=== PATIENT | female | born 1945 | race Caucasian/White ===

== ENCOUNTER → 2024-09-27 | Outpatient (CLI) | payer MEDICARE, BC, SELFPAY ==
--- NOTE | 2024-09-27 15:16 | XR_ITS ---
Examination: Knee bilateral, 6 views Technique: Knee AP, lateral, oblique each knee total 6 views Date and time of exam: September 27, 2024 6 1631 hours INDICATIONS: Bilateral knee pain beginning 10 years ago. 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
--- NOTE | 2024-09-27 15:16 | XR_ITS ---
Examination: AP left knee single view AP right knee single view TECHNIQUE: Standing AP left knee single view, standing AP right knee single view, total 2 views Exam date and time: September 27, 2024 at 1431 hours INDICATIONS: Bilateral knee pain 10 years FINDINGS: Advanced narrowing [id number] medial joint space right knee left knee Prominent osteopenia No fracture IMPRESSION: Advanced narrowing [id number] medial joint space right and left knee
== END | disposition home or self-care (01) ==
LOC: CDIM 14:47
PROVIDERS: PCP Family Medicine; Referring Provider Orthopaedic Surgery; Visit Provider Orthopaedic Surgery
DX: M17.0 Bilateral primary osteoarthritis of knee (principal); M25.862 Other specified joint disorders, left knee; M25.861 Other specified joint disorders, right knee
CPT/HCPCS: 73562; 73564; 73565

== ENCOUNTER → 2024-10-18 | Outpatient (CLI) | payer MEDICARE, BC, SELFPAY ==
[2024-10-18 12:51] LABS: Collection Type, Urine Clean Catch
[2024-10-18 13:25] LABS: Basophils # (Auto) 0.1 Thou/mm3 (0.0-0.2); Basophils % (Auto) 1 % (0-2.5); Eosinophils # (Auto) 1.1 Thou/mm3 (0.0-0.5); Eosinophils % (Auto) 15 % (0-10); Hematocrit 37.3 % (36.0-46.0); Immature Granulocytes % (Auto) 0 % (0-0); Immature Granulocytes Auto 0.02 Thou/mm3 (0.00-0.00); Lymphocytes # (Auto) 1.8 Thou/mm3 (1.0-4.8); Lymphocytes % (Auto) 25 % (10-50); Mean Corpuscular HGB Conc 32.2 g/dl (31.0-37.0); Mean Corpuscular Hemoglobin 32.8 pg (25.0-35.0); Mean Corpuscular Volume 102 fL (80-100); Monocytes # (Auto) 0.6 Thou/mm3 (0.0-0.8); Monocytes % (Auto) 8 % (0-12); Neutrophils # (Auto) 3.5 Thou/mm3 (1.8-7.7); Neutrophils % (Auto) 50 % (37-80); Nucleated Red Blood Cell % 0 /100 WBC (0); Platelet Count 164 Thou/mm3 (140-440); RDW Standard Deviation 50.2 fL (36.4-46.3); Red Blood Count 3.66 Miln/mm3 (4.00-5.20); White Blood Count 7.1 Thou/mm3 (3.6-11.0)
[2024-10-18 13:39] LABS: Glucose Estimated Average 111 mg/dL (80-131); Hemoglobin A1C 5.5 % Hgb (4.8-6.0)
[2024-10-18 13:55] LABS: Bacteria,Urine Rare; Bilirubin,Urine Negative (Negative); Blood,Urine Negative (Negative); Clarity,Urine Clear (Clear/Hazy); Color,Urine Lt-Yellow (Lt Yel-Yel); Glucose, Urine Negative (Negative); Ketones,Urine Negative (Negative); Leukocyte Esterase,Urine Negative (Negative); Nitrite,Urine Negative (Negative); PH,Urine 7.5 (5.0-7.0); Protein,Urine Trace (Neg - Trace); RBC,Urine 3 /hpf (0-3); Squamous Epithelial Cell,Urine 4 /hpf (0-5); Urobilinogen,Urine Negative mg/dL (0.0-1.0); WBC,Urine 5 /hpf (0-5)
[2024-10-18 13:58] LABS: Alanine Aminotransferase 13 U/L (10-49); Albumin, Serum 4.2 gm/dL (3.4-4.8); Albumin/Globulin Ratio 1.8 (1.2-2.2); Alkaline Phosphatase 57 U/L (46-116); Anion Gap 6 (7-16); BUN/Creatinine Ratio 18 Ratio (12-20); Bilirubin,Total 0.4 mg/dL (0.3-1.2); Blood Urea Nitrogen 29 mg/dL (9-23); Calcium 10.2 mg/dL (8.3-10.6); Calcium (Corrected) 10.2 mg/dL (8.5-10.1); Carbon Dioxide 30.3 mMol/L (20.0-31.0); Cardiac Risk Estimate 2.3 RATIO (3.7-5.6); Chloride 106 mMol/L (98-107); Cholesterol 144 mg/dL (132-200); Creatinine (Component) 1.6 mg/dL (0.6-1.3); Globulin 2.4 gm/dL (2.3-3.5); Glucose 111 mg/dL (74-106); HDL Cholesterol 62 mg/dL (40-60); LDL Cholesterol,Calculated 58 mg/dL (0-130); Osmolality,Calculated 289 (275-295); Phosphorous 3.2 mg/dL (2.4-5.1); Sodium 142 mMol/L (136-145); Thyroid Stimulating Hormone 1.55 uIU/mL (0.55-4.78); Total Protein 6.6 gm/dL (5.7-8.2); Triglycerides 122 mg/dL (30-150); eGFR 33 See Note
[2024-10-18 14:02] LABS: CA 15-3 7.7 U/mL (<32.4); Carcinoembryonic Antigen 7.2 ng/mL (0.0-5.0)
[2024-10-18 14:03] LABS: Aspartate Amino Transferase < 8 U/L (0-34)
== END | disposition home or self-care (01) ==
LOC: COPL 11:59
PROVIDERS: PCP Internal Medicine; Referring Provider Internal Medicine; Visit Provider Internal Medicine
DX: Z01.810 Encounter for preprocedural cardiovascular examination (principal); I12.9 Hypertensive chronic kidney disease with stage 1 through stage 4 chronic kidney disease, or unspecified chronic kidney disease; N18.30 Chronic kidney disease, stage 3 unspecified; E78.5 Hyperlipidemia, unspecified; Z90.13 Acquired absence of bilateral breasts and nipples; Z85.3 Personal history of malignant neoplasm of breast
CPT/HCPCS: 36415; 80053; 80061; 81001; 82378; 83036; 84100; 84443; 85025; 86300

== ENCOUNTER → 2024-10-26 | Outpatient (CLI) | payer MEDICARE, BC, SELFPAY | END | disposition home or self-care (01) | LOC: SLDO 15:28 | PROVIDERS: PCP Nurse Practitioner Family; Referring Provider Nurse Practitioner Family; Visit Provider Nurse Practitioner Family | DX: L13.9 Bullous disorder, unspecified (principal) | CPT/HCPCS: 87070; 87077; 87186; 87205 ==

== ENCOUNTER 2024-10-27 13:22 | Outpatient (RCR) | payer MEDICARE, BC, SELFPAY | END 2024-11-09 23:59 | disposition home or self-care (01) | LOC: SCTC 13:22 | PROVIDERS: PCP Nurse Practitioner Family; Referring Provider Internal Medicine; Visit Provider Nurse Practitioner Family | DX: Z08 Encounter for follow-up examination after completed treatment for malignant neoplasm (principal); Z85.3 Personal history of malignant neoplasm of breast; Z90.13 Acquired absence of bilateral breasts and nipples | CPT/HCPCS: 99212; G0463 ==

== ENCOUNTER → 2024-10-28 | Outpatient (CLI) | payer MEDICARE, BC, SELFPAY | END | disposition home or self-care (01) | PROVIDERS: PCP Nurse Practitioner Family; Referring Provider Nurse Practitioner Family; Visit Provider Student in an Organized Health Care Education/Training Program | DX: L97.112 Non-pressure chronic ulcer of right thigh with fat layer exposed (principal); N18.9 Chronic kidney disease, unspecified; E66.9 Obesity, unspecified; I50.9 Heart failure, unspecified; N18.6 End stage renal disease | CPT/HCPCS: 99213; A9270; G0463 ==

== ENCOUNTER → 2024-11-04 | Outpatient (CLI) | payer MEDICARE, BC, SELFPAY | END | disposition home or self-care (01) | LOC: SWHD 15:03 | PROVIDERS: PCP Family Medicine; Referring Provider Family Medicine; Visit Provider Student in an Organized Health Care Education/Training Program | DX: L02.415 Cutaneous abscess of right lower limb (principal); L97.112 Non-pressure chronic ulcer of right thigh with fat layer exposed; N18.9 Chronic kidney disease, unspecified; I50.9 Heart failure, unspecified; N18.6 End stage renal disease | CPT/HCPCS: 17250; A9270 ==

== ENCOUNTER → 2024-11-12 | Outpatient (CLI) | payer MEDICARE, BC, SELFPAY | END | disposition home or self-care (01) | LOC: SWHD 15:04 | PROVIDERS: PCP Family Medicine; Referring Provider Family Medicine; Visit Provider Student in an Organized Health Care Education/Training Program | DX: L02.415 Cutaneous abscess of right lower limb (principal); L97.112 Non-pressure chronic ulcer of right thigh with fat layer exposed; N18.9 Chronic kidney disease, unspecified; E66.9 Obesity, unspecified; I50.9 Heart failure, unspecified; N18.6 End stage renal disease | CPT/HCPCS: 99213; G0463 ==

== ENCOUNTER 2024-11-13 18:08 | Emergency (ER) | payer MEDICARE, BC, SELFPAY ==
[2024-11-13] VITALS (9 sets, daily range): BP systolic 141–159; BP diastolic 66–96; PULSE 85–106; RESP 16–21; TEMP 36.4–37.5; O2SAT 91–98; BMI 37.1
[2024-11-13 19:30] LABS: Basophils % (Auto) 0 % (0-2.5); Eosinophils # (Auto) 0.2 Thou/mm3 (0.0-0.5); Eosinophils % (Auto) 3 % (0-10); Hematocrit 39.8 % (36.0-46.0); Hemoglobin 13.3 g/dL (12.0-16.0); Immature Granulocytes % (Auto) 0 % (0-0); Immature Granulocytes Auto 0.03 Thou/mm3 (0.00-0.00); Lymphocytes # (Auto) 0.5 Thou/mm3 (1.0-4.8); Lymphocytes % (Auto) 5 % (10-50); Mean Corpuscular HGB Conc 33.4 g/dl (31.0-37.0); Mean Corpuscular Hemoglobin 33.3 pg (25.0-35.0); Mean Corpuscular Volume 100 fL (80-100); Monocytes # (Auto) 0.6 Thou/mm3 (0.0-0.8); Monocytes % (Auto) 6 % (0-12); Neutrophils % (Auto) 86 % (37-80); Nucleated Red Blood Cell % 0 /100 WBC (0); Platelet Count 130 Thou/mm3 (140-440); RDW Standard Deviation 48.7 fL (36.4-46.3); White Blood Count 9.3 Thou/mm3 (3.6-11.0)
[2024-11-13] MEDS: ACETAMINOPHEN 325 MG TABLET 650 MG PO (19:41)
[2024-11-13] MEDS: SODIUM CHLORIDE 0.9% 500 ML 500 ML 999 ML IV (19:43)
[2024-11-13 20:04] LABS: Alanine Aminotransferase 8 U/L (10-49); Albumin, Serum 4.1 gm/dL (3.4-4.8); Albumin/Globulin Ratio 1.6 (1.2-2.2); Alkaline Phosphatase 53 U/L (46-116); Anion Gap 9 (7-16); Aspartate Amino Transferase 18 U/L (0-34); BUN/Creatinine Ratio 14 Ratio (12-20); Bilirubin,Total 0.5 mg/dL (0.3-1.2); Blood Urea Nitrogen 22 mg/dL (9-23); Calcium 9.6 mg/dL (8.3-10.6); Calcium (Corrected) 9.6 mg/dL (8.5-10.1); Carbon Dioxide 22.8 mMol/L (20.0-31.0); Chloride 109 mMol/L (98-107); Creatinine (Component) 1.6 mg/dL (0.6-1.3); Estimated Creatinine Clearance 35.4 mL/min (>60); Globulin 2.5 gm/dL (2.3-3.5); Glucose 122 mg/dL (74-106); Osmolality,Calculated 285 (275-295); Potassium 4.4 mMol/L (3.4-5.1); Sodium 141 mMol/L (136-145); Total Protein 6.6 gm/dL (5.7-8.2); Troponin I < 0.020 ng/mL (0.0-0.045); eGFR 33 See Note
--- NOTE | 2024-11-13 20:31 | PD.EDNV ---
Nausea/Vomit./Diarrhea-RME/HPI General Chief complaint: Nausea/Vomiting/Diarrhea Stated complaint: HEADACHE Time Seen by Provider: 11/13/24 18:32 Source: patient and EMS Arrival date/time: 11/13/24 18:08 Mode of arrival: EMS Limitations: no limitations RME / HPI RME / HPI Narrative: --- DR. BENAVIDES MAIN ED EVALUATION: 78-year-old female with a history of depression, gout, high cholesterol, CHF on Lasix, constipation, chronic pain medicine coming in with diarrhea x 1 day. Patient complaining of dizziness. No syncope. Patient states that she had multiple episodes of nonbloody and none smelly diarrhea today, 1 episode of nausea, no chest pain or shortness of breath. The patient is complaining of lightheadedness without vertigo. No weakness or numbness. Patient takes Zoloft, [place], atorvastatin, Lasix, senna, aspirin, Tylenol with her arthritis. Related Data Home Medications ?Medication ?Instructions ?Recorded ?Confirmed hydrocodone 5 mg-acetaminophen 325 1 tab PO BID PRN Pain 09/21/19 05/29/21 mg tablet acetaminophen 650 mg 650 mg PO QAM 05/29/21 05/29/21 tablet,extended release (Tylenol Arthritis Pain) allopurinol 100 mg tablet 100 mg PO QDAY 05/29/21 05/29/21 atorvastatin 20 mg tablet 20 mg PO QPM 05/29/21 05/29/21 cholecalciferol (vitamin D3) 125 125 mcg PO QPM 05/29/21 05/29/21 mcg (5,000 unit) tablet (Vitamin D3) clonazepam 1 mg tablet 1 mg PO QPM 05/29/21 05/29/21 docusate sodium 100 mg tablet 200 mg PO QDAY 05/29/21 05/29/21 (Stool Softener) mirabegron 25 mg tablet,extended 25 mg PO QDAY 05/29/21 05/29/21 release 24 hr (Myrbetriq) nabumetone 500 mg tablet 500 mg PO QAM 05/29/21 05/29/21 pregabalin 75 mg capsule (Lyrica) 75 mg PO BID 05/29/21 05/29/21 sennosides 8.6 mg tablet (senna) 8.6 mg PO QDAY 05/29/21 05/29/21 sertraline 100 mg tablet 150 mg PO QDAY 05/29/21 05/29/21 Allergies Allergy/AdvReac Type Severity Reaction Status Date / Time penicillin G Allergy Unknown ITCH, Verified 11/13/24 18:23 RASH, THROAT SWELLING, STOMACH PAIN Review of Systems Review of Systems Systems Reviewed: All systems reviewed, normal except as documented Past Medical History Past Medical History NEUROLOGIC: Negative Seizures CARDIAC: Negative Cardiac Disorders or Congestive Heart Failure RESPIRATORY: Negative Chronic Obstructive Pulmonary Disease (COPD) or Asthma GASTROINTESTINAL: Positive Gall Bladder Disease and Obesity GENITOURINARY: Positive Renal Disease REPRODUCTIVE: Positive Breast Cancer MUSCULOSKELETAL: Positive Musculoskeletal Disorders, Arthritis, Osteoporosis and Gout ENDOCRINE: Negative Diabetes Mellitus Type 1 or Diabetes Mellitus Type 2 HEMATOLOGIC: Positive Anemia; Negative Blood Disorders or Sickle Cell Disease PSYCHO/SOCIAL: Positive Depression OTHER HISTORY: Positive Blood Transfusions, Cancer and Breast Cancer; Negative Blood Transfusion Reaction, Anesthesia Reactions or Cervical Cancer Surgical History SURGICAL: Positive Mastectomy and Hysterectomy Social History SMOKING STATUS: Never smoker SUBSTANCE USE: does not use ED Exam Narrative Physical exam: GEN. APPEARANCE: The patient is alert awake oriented X-3 in no distress, lying down comfortably, Patient has good eye contact. Patient is cooperative. VITALS: All vitals were reviewed and the pulse ox is [96]% on room air which is normal according to my interpretation. HEENT: Normocephalic, atraumatic. Dry mucous membranes NECK: Supple, nontender, no thyromegaly, no meningismus, no JVD, no step offs CHEST: Symmetrical, atraumatic, and with equal expansion , Nontender on palpation no deformity and no crepitus. CARDIOVASCULAR: Heart regular rhythm no murmur or gallop rub or extra beats. LUNGS: There is decreased breath sounds with R> L No laboring tachypnea or wheezing. No intercostal subcostal retraction. No rales and no rhonchi. ABDOMEN: Soft, flat, nontender to palpation, no guarding or rebound tenderness. There are no abnormal masses palpated. EXTREMITIES: Nontender. No edema. No cyanosis. Patient is able to move all 4 extremities well, with full ROM. There is pedal edema at bilateral ankles. SKIN: Warm and dry, no jaundice or rashes noted. No pallor. MUSCULOSKELETAL: No lumbar or midline bony tenderness. There is no CVA tenderness. NEURO: Patient is QUESADA x 4, Cranial nerves II through XII grossly intact. There is no focal neurologic deficits noted. GCS is 15, General Limitations: Present no limitations Course Course Course Narrative: Creatinine is 1.6. This is at the patient's baseline. Quality Measures none Orders Category Date Time Status IV [Insert IV] NOW Care 11/13/24 18:40 Active In and Out Catheter X1 Care 11/13/24 18:[address] head/brain wo con Stat Exams 11/13/24 23:07 Completed CBC Stat Lab 11/13/24 19:08 Completed CMP [Comprehensive Metabolic Panel] Stat Lab 11/13/24 19:08 Completed Troponin I Stat Lab 11/13/24 19:08 Completed Urinalysis Stat Lab 11/14/24 01:50 Completed Acetaminophen Tab [Tylenol Tab] Med 11/13/24 18:42 Discontinued 650 mg PO X1 ONE Sodium Chloride 0.9% 500 ml [Ns] 500 ml Med 11/13/24 18:41 Discontinued IV 999 mls/hr Vital Signs Vital signs: Vital Signs Temperature 99.5 F 11/13/24 18:18 Pulse Rate 106 H 11/13/24 18:18 Respiratory Rate 21 H 11/13/24 18:18 Blood Pressure 159/96 H 11/13/24 18:18 Pulse Oximetry (%) 92 L 11/13/24 18:18 Oxygen Delivery Method Room Air 11/13/24 18:18 Nausea/Vomiting/Diarrhea MDM Narrative MDM Narrative:: Scribe Attestation: IDrew, am scribing for and in the presence of Dr. Vasquez. Provider Notation: Although this document has been carefully reviewed, there may still be some phonetic and other typographical errors. These errors are purely grammatical due to imperfections in the software program and should not be construed in any way to compromise the substance of the patient's medical care during this visit. Patient data External records reviewed:: [facility] previous records and EMS form Clinical information provided by:: patient and EMS Social determinants that could affect healthcare access:: none Patient has the following chronic illnesses:: depression, gout, high cholesterol, CHF on Lasix, constipation, chronic pain medicine, arthritis How is presenting disease/condition affected by chronic disease/condition?: uneffected by Evaluation data The following diagnostics were reviewed and interpreted by me:: lab results and radiology exam(s) Lab and/or radiology exams considered but not ordered:: None Interpretation Summary: I personally reviewed the radiology data and agree with the radiologist's interpretation. Examination: CT brain head without contrast. Date and time of exam:November 13, 1999 2555 hours Indications: Onset headache this evening Findings: No significant ventricular enlargement. 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 No mass effect or midline shift Basal cisterns are not remarkable. Fourth ventricle is midline. Cranial vault intact. Impression: Negative for acute hemorrhage, mass effect or midline shift Old infarcts as above Brain MRI follow-up would best assess for acute ischemic change, as clinically warranted Dictated By: Bimal Hernandez MD Medications / Prescriptions Medications / Prescriptions considered but not ordered:: None Medication administrations:: Medication Administration History Discontinued Medications Acetaminophen (Acetaminophen 325 Mg Tablet) 650 mg PO X1 ONE Stop: 11/13/24 18:43 Last Admin: 11/13/24 19:41 Dose: 650 mg Documented By: YAYA Sodium Chloride (Ns) 500 mls @ 999 mls/hr IV .Q31M ONE Stop: 11/13/24 19:11 Last Infusion: 11/13/24 23:00 Dose: Infused Documented By: Admin: 11/13/24 19:43 Dose: 999 mls/hr Documented By: YAYA As above Consultations Consultation(s) initiated? (list below): No Diagnosis Nausea Differential Diagnosis: traveler's diarrhea, food poisoning, gastroenteritis, dehydration and other (Electrolyte abnormality, PA,, UTI) Most likely diagnosis given after review of the tests above:: Diarrhea, Chronic kidney insufficiency Admission Indicated Admission indicated?: not indicated Admission Request Was there a request for admission?: No Disposition Plan Disposition Plan: Discharge Discharge Attestation Discharge Attestation: The patient and all family members were given an opportunity to ask questions and understood the discharge instructions. Discharge instructions specifically effects, indications for sooner follow up or return to the emergency department, and the expected course of current diagnosis. Patient condition: Stable Discharge Plan Plan Patient Disposition: HOME (Self Care) Patient condition on transfer: Stable Prescriptions/Referrals Prescriptions/Med Rec: No Action hydrocodone-acetaminophen 5-325 mg Tablet 1 tab PO BID PRN (Reason: Pain) sennosides [senna] 8.6 mg Tablet 8.6 mg PO QDAY atorvastatin 20 mg Tablet 20 mg PO QPM sertraline 100 mg Tablet 150 mg PO QDAY clonazepam 1 mg Tablet 1 mg PO QPM allopurinol 100 mg tablet 100 mg PO QDAY Patient Comments: TAKE 1 TABLET BY MOUTH EVERY DAY acetaminophen [Tylenol Arthritis Pain] 650 mg Tablet Extended Release 650 mg PO QAM docusate sodium [Stool Softener] 100 mg Tablet 200 mg PO QDAY nabumetone 500 mg tablet 500 mg PO QAM Patient Comments: TAKE 1 TABLET BY MOUTH TWICE A DAY NEEDED pregabalin [Lyrica] 75 mg Capsule 75 mg PO BID cholecalciferol (vitamin D3) [Vitamin D3] 125 mcg (5,000 unit) Tablet 125 mcg PO QPM Myrbetriq 25 mg Tablet Extended Release 24 Hr 25 mg PO QDAY Problem List Clinical Impression: Diarrhea, Chronic kidney insufficiency Patient/Caregiver Discharge Instructions Education Materials: ED Diet for Vomiting or ... Additional Instructions: Stay hydrated with Pedialyte and/or Gatorade. You will need to follow-up with your primary care physician in the next 48 to 72 hours. Return sooner to the emergency department for fever, worsening symptoms, you cannot tolerate fluids, or any other concerns. Print Language: Macedonian Stand Alone Forms: Mary Award Info., Patient Portal Info Letter
--- NOTE | 2024-11-13 21:13 | PC.NURSE ---
Pt resting quietly appears in NAD. No NVD since arival. states NELSON is 5 on 0-10 scale.
--- NOTE | 2024-11-13 23:07 | XR_ITS ---
Examination: CT brain head without contrast. 2-D sagittal coronal reconstructions Date and time of exam:November 13, 1999 2555 hours Indications: Onset headache this evening CTDI: vol (mGy):52.7 DLP: (mGycm):1030 Technique: Multiple CT axial sections of the brain have been obtained, 5 mm slice thickness. Contrast has not been administered. 2-D sagittal, coronal reconstructions have been obtained Low dose protocols were performed. One or more of the following dose reduction techniques were used; automated exposure control, adjustment of the mA and/or KV according to patient size, use of iterative reconstruction technique. Findings: No significant ventricular enlargement. 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 No mass effect or midline shift Basal cisterns are not remarkable. Fourth ventricle is midline. Cranial vault intact. Impression: Negative for acute hemorrhage, mass effect or midline shift Old infarcts as above Brain MRI follow-up would best assess for acute ischemic change, as clinically warranted
[2024-11-14] VITALS (7 sets, daily range): BP systolic 111–128; BP diastolic 53–63; PULSE 74; RESP 18–20; TEMP 36.8; O2SAT 93–96
--- NOTE | 2024-11-14 00:25 | PRELIM_ITS ---
CT scan of the head without intravenous contrast (axial sections with sagittal and coronal reformats) November 13, 2024 2355 hours Clinical history: HeadacheComparison: No prior study is available for co mparisonFindings:There is no evidence of intracranial hemorrhage, mass effect or midline shift. 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 There are periventricular white matter hypodensities, compatible with chronic small vessel ischemia. There is mild volume loss. The calvarium is unremarkab le. The mastoid air cells and the visualized paranasal sinuses are clear.Impression:No evidence of in tracranial hemorrhage, mass effect or midline shift.Generalized cerebral atrophy and chronic small ve ssel ischemic change with chronic infarcts as described above. Report Electronically Signed By: Dank Owens 11/14/2024 12:24:21 AM [EST]
--- NOTE | 2024-11-14 02:07 | PC.NURSE ---
pt inc of urine. pt cleaned and sheets changed.
[2024-11-14 02:40] LABS: Collection Type, Urine Catheter; RBC,Urine 0 /hpf (0-3); WBC,Urine 0 /hpf (0-5)
[2024-11-14 02:52] LABS: Bacteria,Urine 3+; Bilirubin,Urine Negative (Negative); Blood,Urine Negative (Negative); Clarity,Urine Clear (Clear/Hazy); Color,Urine Lt-Yellow (Lt Yel-Yel); Glucose, Urine Negative (Negative); Hyaline Casts,Urine < 1 /hpf (0-1); Ketones,Urine Trace (Negative); Leukocyte Esterase,Urine Negative (Negative); Nitrite,Urine Negative (Negative); PH,Urine 5.5 (5.0-7.0); Protein,Urine Negative (Neg - Trace); Specific Gravity,Urine 1.024 (1.001-1.035); Squamous Epithelial Cell,Urine < 1 /hpf (0-5); Urobilinogen,Urine Negative mg/dL (0.0-1.0)
--- NOTE | 2024-11-14 03:08 | PC.NURSE ---
Pt is sleeping. Ready for discharge. Pt lives in an assisted living complex. Contacted pts son Richard echols states they are unable to get into the complex until 0700. The doors are locked and they can not get in without a duvall until 0700. Son will be here at 0700.
--- NOTE | 2024-11-14 05:46 | PC.NURSE ---
pt fhas been sleeping arouses easily. No NVD since arrival
== END 2024-11-14 07:50 | disposition home or self-care (01) ==
PROVIDERS: Emergency Provider Emergency Medicine; PCP Nurse Practitioner Family
DX: R19.7 Diarrhea, unspecified (principal); N18.9 Chronic kidney disease, unspecified; R51.9 Headache, unspecified; F32.A Depression, unspecified; M10.9 Gout, unspecified; I50.9 Heart failure, unspecified; R42 Dizziness and giddiness
CPT/HCPCS: 36415; 70450; 80053; 81001; 84484; 85025; 87400; 99284; J7040; A9270

== ENCOUNTER → 2024-11-26 | Outpatient (CLI) | payer MEDICARE, BC, SELFPAY | END | disposition home or self-care (01) | PROVIDERS: PCP Family Medicine; Referring Provider Family Medicine; Visit Provider Student in an Organized Health Care Education/Training Program | DX: L02.415 Cutaneous abscess of right lower limb (principal); L97.112 Non-pressure chronic ulcer of right thigh with fat layer exposed; N18.9 Chronic kidney disease, unspecified; E66.9 Obesity, unspecified; I50.9 Heart failure, unspecified; N18.6 End stage renal disease; R32 Unspecified urinary incontinence; S71.101A Unspecified open wound, right thigh, initial encounter; X58.XXXA Exposure to other specified factors, initial encounter | CPT/HCPCS: 99213; A9270; G0463 ==

== ENCOUNTER → 2024-12-09 | Outpatient (CLI) | payer MEDICARE, BC, SELFPAY | END | disposition home or self-care (01) | LOC: SWHD 14:28 | PROVIDERS: PCP Family Medicine; Referring Provider Family Medicine; Visit Provider Student in an Organized Health Care Education/Training Program | DX: L02.415 Cutaneous abscess of right lower limb (principal); L97.112 Non-pressure chronic ulcer of right thigh with fat layer exposed; N18.9 Chronic kidney disease, unspecified; E66.9 Obesity, unspecified; I50.9 Heart failure, unspecified; N18.6 End stage renal disease; S71.101A Unspecified open wound, right thigh, initial encounter; X58.XXXA Exposure to other specified factors, initial encounter | CPT/HCPCS: 99213; G0463 ==

== ENCOUNTER → 2024-12-15 | Outpatient (CLI) | payer MEDICARE, BC, SELFPAY ==
[2024-12-15 13:45] LABS: Basophils # (Auto) 0.1 Thou/mm3 (0.0-0.2); Basophils % (Auto) 1 % (0-2.5); Eosinophils # (Auto) 1.2 Thou/mm3 (0.0-0.5); Eosinophils % (Auto) 16 % (0-10); Hematocrit 37.7 % (36.0-46.0); Immature Granulocytes % (Auto) 0 % (0-0); Immature Granulocytes Auto 0.03 Thou/mm3 (0.00-0.00); Lymphocytes # (Auto) 1.9 Thou/mm3 (1.0-4.8); Lymphocytes % (Auto) 26 % (10-50); Mean Corpuscular HGB Conc 31.8 g/dl (31.0-37.0); Mean Corpuscular Hemoglobin 32.3 pg (25.0-35.0); Mean Corpuscular Volume 101 fL (80-100); Monocytes # (Auto) 0.6 Thou/mm3 (0.0-0.8); Monocytes % (Auto) 9 % (0-12); Neutrophils # (Auto) 3.6 Thou/mm3 (1.8-7.7); Neutrophils % (Auto) 49 % (37-80); Nucleated Red Blood Cell % 0 /100 WBC (0); Platelet Count 167 Thou/mm3 (140-440); RDW Standard Deviation 50.1 fL (36.4-46.3); Red Blood Count 3.72 Miln/mm3 (4.00-5.20); White Blood Count 7.3 Thou/mm3 (3.6-11.0)
[2024-12-15 14:19] LABS: Alanine Aminotransferase 10 U/L (10-49); Albumin/Globulin Ratio 1.7 (1.2-2.2); Alkaline Phosphatase 54 U/L (46-116); Anion Gap 8 (7-16); Aspartate Amino Transferase 13 U/L (0-34); BUN/Creatinine Ratio 18 Ratio (12-20); Bilirubin,Total 0.4 mg/dL (0.3-1.2); Blood Urea Nitrogen 28 mg/dL (9-23); Calcium 10.4 mg/dL (8.3-10.6); Calcium (Corrected) 10.4 mg/dL (8.5-10.1); Carbon Dioxide 28.9 mMol/L (20.0-31.0); Chloride 106 mMol/L (98-107); Creatinine (Component) 1.6 mg/dL (0.6-1.3); Globulin 2.4 gm/dL (2.3-3.5); Glucose 102 mg/dL (74-106); Osmolality,Calculated 290 (275-295); Sodium 143 mMol/L (136-145); Total Protein 6.4 gm/dL (5.7-8.2); eGFR 33 See Note
[2024-12-15 14:56] LABS: Parathyroid Hormone Intact 23.4 pg/ml (18.5-88.0)
[2024-12-15 15:54] LABS: CA 15-3 5.2 U/mL (<32.4); Carcinoembryonic Antigen 6.1 ng/mL (0.0-5.0)
== END | disposition home or self-care (01) ==
LOC: SCTO 12:59
PROVIDERS: PCP Nurse Practitioner Family; Referring Provider Internal Medicine; Visit Provider Internal Medicine
DX: I12.9 Hypertensive chronic kidney disease with stage 1 through stage 4 chronic kidney disease, or unspecified chronic kidney disease (principal); N18.30 Chronic kidney disease, stage 3 unspecified; Z90.13 Acquired absence of bilateral breasts and nipples; Z85.3 Personal history of malignant neoplasm of breast
CPT/HCPCS: 36415; 80053; 82378; 83970; 84100; 85025; 86300

== ENCOUNTER 2024-12-22 14:27 | Outpatient (RCR) | payer MEDICARE, BC, SELFPAY | END 2025-01-07 23:59 | disposition home or self-care (01) | LOC: SCTC 14:27 | PROVIDERS: PCP Nurse Practitioner Family; Referring Provider Nurse Practitioner Family; Visit Provider Nurse Practitioner Family | DX: Z08 Encounter for follow-up examination after completed treatment for malignant neoplasm (principal); Z85.3 Personal history of malignant neoplasm of breast; Z90.13 Acquired absence of bilateral breasts and nipples | CPT/HCPCS: 99212; G0463 ==

== ENCOUNTER → 2024-12-31 | Outpatient (CLI) | payer MEDICARE, BC, SELFPAY | END | disposition home or self-care (01) | LOC: SWHD 14:37 | PROVIDERS: PCP Family Medicine; Referring Provider Family Medicine; Visit Provider Surgery | DX: L02.415 Cutaneous abscess of right lower limb (principal); L97.112 Non-pressure chronic ulcer of right thigh with fat layer exposed; S71.101A Unspecified open wound, right thigh, initial encounter; X58.XXXA Exposure to other specified factors, initial encounter; N18.9 Chronic kidney disease, unspecified; E66.9 Obesity, unspecified; I50.9 Heart failure, unspecified; N18.6 End stage renal disease | CPT/HCPCS: 99213; A9270; G0463 ==

== ENCOUNTER → 2025-01-07 | Outpatient (CLI) | payer MEDICARE, BC, SELFPAY | END | disposition home or self-care (01) | LOC: SWHD 14:19 | PROVIDERS: PCP Family Medicine; Referring Provider Family Medicine; Visit Provider Surgery | DX: L02.415 Cutaneous abscess of right lower limb (principal); S71.101A Unspecified open wound, right thigh, initial encounter; X58.XXXA Exposure to other specified factors, initial encounter; N18.9 Chronic kidney disease, unspecified; E66.9 Obesity, unspecified; I50.9 Heart failure, unspecified; N18.6 End stage renal disease | CPT/HCPCS: 99212; G0463 ==

== ENCOUNTER → 2025-01-27 | Outpatient (CLI) | payer MEDICARE, BC, SELFPAY | END | disposition home or self-care (01) | PROVIDERS: PCP Family Medicine; Referring Provider Family Medicine; Visit Provider Student in an Organized Health Care Education/Training Program | DX: L02.415 Cutaneous abscess of right lower limb (principal); S71.101A Unspecified open wound, right thigh, initial encounter; X58.XXXA Exposure to other specified factors, initial encounter; N18.9 Chronic kidney disease, unspecified; I50.9 Heart failure, unspecified | CPT/HCPCS: 99213; A9270; G0463 ==

== ENCOUNTER → 2025-02-09 | Outpatient (CLI) | payer MEDICARE, BC, SELFPAY | END | disposition home or self-care (01) | LOC: SWHD 14:44 | PROVIDERS: PCP Family Medicine; Referring Provider Family Medicine; Visit Provider Student in an Organized Health Care Education/Training Program | DX: L02.415 Cutaneous abscess of right lower limb (principal); L97.112 Non-pressure chronic ulcer of right thigh with fat layer exposed; S71.101A Unspecified open wound, right thigh, initial encounter; X58.XXXA Exposure to other specified factors, initial encounter; N18.9 Chronic kidney disease, unspecified; I50.9 Heart failure, unspecified | CPT/HCPCS: 17250; A9270 ==

== ENCOUNTER → 2025-02-16 | Outpatient (CLI) | payer MEDICARE, BC, SELFPAY | END | disposition home or self-care (01) | PROVIDERS: PCP Family Medicine; Referring Provider Family Medicine; Visit Provider Student in an Organized Health Care Education/Training Program | DX: L97.112 Non-pressure chronic ulcer of right thigh with fat layer exposed (principal); S71.101A Unspecified open wound, right thigh, initial encounter; X58.XXXA Exposure to other specified factors, initial encounter; N18.9 Chronic kidney disease, unspecified; I50.9 Heart failure, unspecified | CPT/HCPCS: 99213; A9270; G0463 ==

== ENCOUNTER → 2025-02-23 | Outpatient (CLI) | payer MEDICARE, BC, SELFPAY | END | disposition home or self-care (01) | LOC: SWHD 14:48 | PROVIDERS: PCP Family Medicine; Referring Provider Family Medicine; Visit Provider Student in an Organized Health Care Education/Training Program | DX: L97.112 Non-pressure chronic ulcer of right thigh with fat layer exposed (principal); S71.101A Unspecified open wound, right thigh, initial encounter; X58.XXXA Exposure to other specified factors, initial encounter; N18.9 Chronic kidney disease, unspecified; I50.9 Heart failure, unspecified; Z85.3 Personal history of malignant neoplasm of breast | CPT/HCPCS: 99213; A9270; G0463 ==

== ENCOUNTER → 2025-03-23 | Outpatient (CLI) | payer MEDICARE, BC, SELFPAY ==
[2025-03-23 13:36] LABS: Calcium, Ionized 4.6 mg/dL (4.6-5.6)
[2025-03-23 13:42] LABS: Basophils # (Auto) 0.1 Thou/mm3 (0.0-0.2); Basophils % (Auto) 1 % (0-2.5); Eosinophils # (Auto) 1.2 Thou/mm3 (0.0-0.5); Eosinophils % (Auto) 17 % (0-10); Hematocrit 39.4 % (36.0-46.0); Hemoglobin 12.7 g/dL (12.0-16.0); Immature Granulocytes % (Auto) 0 % (0-0); Immature Granulocytes Auto 0.01 Thou/mm3 (0.00-0.00); Lymphocytes % (Auto) 30 % (10-50); Mean Corpuscular HGB Conc 32.2 g/dl (31.0-37.0); Mean Corpuscular Volume 102 fL (80-100); Monocytes # (Auto) 0.6 Thou/mm3 (0.0-0.8); Monocytes % (Auto) 9 % (0-12); Neutrophils # (Auto) 2.9 Thou/mm3 (1.8-7.7); Neutrophils % (Auto) 43 % (37-80); Nucleated Red Blood Cell % 0 /100 WBC (0); Platelet Count 169 Thou/mm3 (140-440); RDW Standard Deviation 48.9 fL (36.4-46.3); Red Blood Count 3.85 Miln/mm3 (4.00-5.20); White Blood Count 6.8 Thou/mm3 (3.6-11.0)
[2025-03-23 13:54] LABS: Parathyroid Hormone Intact 69.5 pg/ml (18.5-88.0)
[2025-03-23 13:58] LABS: Glucose Estimated Average 111 mg/dL (80-131); Hemoglobin A1C 5.5 % Hgb (4.8-6.0)
[2025-03-23 14:02] LABS: Collection Type, Urine Clean Catch
[2025-03-23 14:10] LABS: Alanine Aminotransferase 10 U/L (10-49); Albumin, Serum 4.2 gm/dL (3.4-4.8); Albumin/Globulin Ratio 1.6 (1.2-2.2); Alkaline Phosphatase 50 U/L (46-116); Anion Gap 6 (7-16); Aspartate Amino Transferase 15 U/L (0-34); BUN/Creatinine Ratio 17 Ratio (12-20); Bilirubin,Total 0.4 mg/dL (0.3-1.2); Blood Urea Nitrogen 25 mg/dL (9-23); C-Reactive Protein < 0.5 mg/dL (0.0-0.9); Calcium 9.4 mg/dL (8.3-10.6); Calcium (Corrected) 9.4 mg/dL (8.5-10.1); Carbon Dioxide 28.9 mMol/L (20.0-31.0); Cardiac Risk Estimate 2.1 RATIO (3.7-5.6); Chloride 109 mMol/L (98-107); Cholesterol 135 mg/dL (132-200); Creatinine (Component) 1.5 mg/dL (0.6-1.3); Globulin 2.7 gm/dL (2.3-3.5); Glucose 114 mg/dL (74-106); HDL Cholesterol 65 mg/dL (40-60); LDL Cholesterol,Calculated 47 mg/dL (0-130); Osmolality,Calculated 292 (275-295); Potassium 4.6 mMol/L (3.4-5.1); Sodium 144 mMol/L (136-145); Total Protein 6.9 gm/dL (5.7-8.2); Triglycerides 115 mg/dL (30-150); Uric Acid 6.2 mg/dL (3.1-7.8); eGFR 35 See Note
[2025-03-23 14:13] LABS: Carcinoembryonic Antigen 6.5 ng/mL (0.0-5.0); Vitamin D 25 Hydroxy Total 51.9 ng/mL (7.3-40.2)
[2025-03-23 14:25] LABS: Bacteria,Urine 4+; Bilirubin,Urine Negative (Negative); Blood,Urine Negative (Negative); Clarity,Urine Turbid (Clear/Hazy); Color,Urine Yellow (Lt Yel-Yel); Glucose, Urine Negative (Negative); Ketones,Urine Negative (Negative); Leukocyte Esterase,Urine Positive (Negative); Nitrite,Urine Positive (Negative); PH,Urine 6.5 (5.0-7.0); Protein,Urine Trace (Neg - Trace); RBC,Urine 3 /hpf (0-3); Specific Gravity,Urine 1.025 (1.001-1.035); Squamous Epithelial Cell,Urine 3 /hpf (0-5); Urobilinogen,Urine Negative mg/dL (0.0-1.0); WBC,Urine 14 /hpf (0-5)
[2025-03-23 14:36] LABS: Creatinine MALB Rnd Ur 152 mg/dL (30-125); Microalbumin Creat Ratio 45 mg/gCrea (<30); Microalbumin, Random Urine 69 mg/L (0-300)
[2025-03-23 15:45] LABS: Sed Rate (ESR) 18 mm/hr (0-30)
== END | disposition home or self-care (01) ==
LOC: COPL 12:51
PROVIDERS: PCP Family Medicine; Referring Provider Nurse Practitioner Family; Visit Provider Internal Medicine
DX: I12.9 Hypertensive chronic kidney disease with stage 1 through stage 4 chronic kidney disease, or unspecified chronic kidney disease (principal); E78.5 Hyperlipidemia, unspecified; M10.9 Gout, unspecified; M15.9 Polyosteoarthritis, unspecified; M81.0 Age-related osteoporosis without current pathological fracture; N18.30 Chronic kidney disease, stage 3 unspecified; Z85.3 Personal history of malignant neoplasm of breast; Z90.13 Acquired absence of bilateral breasts and nipples
CPT/HCPCS: 36415; 80053; 80061; 81001; 82043; 82306; 82330; 82378; 82570; 83036; 83970; 84550; 85025; 85652; 86140; 86300

== ENCOUNTER 2025-04-21 15:42 | Outpatient (RCR) | payer MEDICARE, BC, SELFPAY | END 2025-05-09 23:59 | disposition home or self-care (01) | LOC: SCTC 15:42 | PROVIDERS: PCP Family Medicine; Referring Provider Family Medicine; Visit Provider Nurse Practitioner Family | DX: Z08 Encounter for follow-up examination after completed treatment for malignant neoplasm (principal); Z85.3 Personal history of malignant neoplasm of breast; Z90.13 Acquired absence of bilateral breasts and nipples | CPT/HCPCS: 99212; G0463 ==

== ENCOUNTER → 2025-05-03 | Outpatient (CLI) | payer MEDICARE, BC, SELFPAY | END | disposition home or self-care (01) | LOC: SLDO 09:52 | PROVIDERS: Referring Provider Nurse Practitioner Family; Visit Provider Nurse Practitioner Family | DX: N30.00 Acute cystitis without hematuria (principal) | CPT/HCPCS: 87086 ==

== ENCOUNTER → 2025-06-14 | Outpatient (CLI) | payer MEDICARE, BC, SELFPAY ==
--- NOTE | 2025-06-14 14:27 | XR_ITS ---
Examination: Lumbar spine 3 views Technique AP lateral, lateral lower lumbar spine 3 views Date and time: June 14, 2025 1450 hours INDICATIONS: Low back pain this week. FINDINGS: Lumbar levoscoliosis 10 degrees No acute lumbar fracture Chronic compression T12 Mild lumbar spondylosis Mild diffuse lumbar degenerative disc disease IMPRESSION: Mild diffuse lumbar degenerative disc disease
[2025-06-14 16:16] LABS: Glucose Estimated Average 123 mg/dL (80-131); Hemoglobin A1C 5.9 % Hgb (4.8-6.0); Parathyroid Hormone Intact 78.8 pg/ml (18.5-88.0)
[2025-06-14 16:21] LABS: Alanine Aminotransferase 20 U/L (10-49); Albumin, Serum 4.3 gm/dL (3.4-4.8); Albumin/Globulin Ratio 1.6 (1.2-2.2); Alkaline Phosphatase 237 U/L (46-116); Anion Gap 10 (7-16); Aspartate Amino Transferase 18 U/L (0-34); BUN/Creatinine Ratio 16 Ratio (12-20); Bilirubin,Total 0.6 mg/dL (0.3-1.2); Blood Urea Nitrogen 25 mg/dL (9-23); Calcium 9.9 mg/dL (8.3-10.6); Calcium (Corrected) 9.9 mg/dL (8.5-10.1); Carbon Dioxide 28.5 mMol/L (20.0-31.0); Cardiac Risk Estimate 2.5 RATIO (3.7-5.6); Chloride 105 mMol/L (98-107); Cholesterol 140 mg/dL (132-200); Creatinine (Component) 1.6 mg/dL (0.6-1.3); Globulin 2.7 gm/dL (2.3-3.5); Glucose 105 mg/dL (74-106); HDL Cholesterol 55 mg/dL (40-60); LDL Cholesterol,Calculated 64 mg/dL (0-130); Osmolality,Calculated 289 (275-295); Potassium 4.8 mMol/L (3.4-5.1); Sodium 143 mMol/L (136-145); Thyroid Stimulating Hormone 1.37 uIU/mL (0.55-4.78); Total Protein 7.0 gm/dL (5.7-8.2); Triglycerides 104 mg/dL (30-150); eGFR 33 See Note
[2025-06-14 16:37] LABS: Vitamin D 25 Hydroxy Total 50.8 ng/mL (7.3-40.2)
[2025-06-14 16:57] LABS: Collection Type, Urine Clean Catch
[2025-06-14 17:30] LABS: Basophils # (Auto) 0.1 Thou/mm3 (0.0-0.2); Basophils % (Auto) 1 % (0-2.5); Eosinophils # (Auto) 0.9 Thou/mm3 (0.0-0.5); Eosinophils % (Auto) 12 % (0-10); Hematocrit 38.7 % (36.0-46.0); Hemoglobin 12.4 g/dL (12.0-16.0); Immature Granulocytes Auto 0.02 Thou/mm3 (0.00-0.00); Lymphocytes # (Auto) 2.5 Thou/mm3 (1.0-4.8); Lymphocytes % (Auto) 33 % (10-50); Mean Corpuscular HGB Conc 32.0 g/dl (31.0-37.0); Mean Corpuscular Hemoglobin 32.7 pg (25.0-35.0); Mean Corpuscular Volume 102 fL (80-100); Monocytes # (Auto) 0.6 Thou/mm3 (0.0-0.8); Monocytes % (Auto) 8 % (0-12); Neutrophils # (Auto) 3.4 Thou/mm3 (1.8-7.7); Neutrophils % (Auto) 46 % (37-80); Nucleated Red Blood Cell # 0.00 Thou/mm3 (0.00-0.00); Nucleated Red Blood Cell % 0 /100 WBC (0); Platelet Count 240 Thou/mm3 (140-440); RDW Standard Deviation 48.6 fL (36.4-46.3); Red Blood Count 3.79 Miln/mm3 (4.00-5.20); White Blood Count 7.4 Thou/mm3 (3.6-11.0)
[2025-06-14 17:44] LABS: Creatinine MALB Rnd Ur 74 mg/dL (30-125); Microalbumin Creat Ratio 20 mg/gCrea (<30); Microalbumin, Random Urine 15 mg/L (0-300)
[2025-06-14 17:48] LABS: Bilirubin,Urine Negative (Negative); Blood,Urine Negative (Negative); Clarity,Urine Clear (Clear/Hazy); Color,Urine Lt-Yellow (Lt Yel-Yel); Glucose, Urine Negative (Negative); Ketones,Urine Negative (Negative); Leukocyte Esterase,Urine Positive (Negative); Nitrite,Urine Positive (Negative); PH,Urine 6.0 (5.0-7.0); Protein,Urine Negative (Neg - Trace); RBC,Urine 2 /hpf (0-3); Specific Gravity,Urine 1.012 (1.001-1.035); Squamous Epithelial Cell,Urine < 1 /hpf (0-5); Urobilinogen,Urine Negative mg/dL (0.0-1.0); WBC,Urine 49 /hpf (0-5)
== END | disposition home or self-care (01) ==
LOC: CDIM 14:13 → COPL 15:01
PROVIDERS: Nurse Practitioner; PCP Nurse Practitioner Family; Referring Provider Internal Medicine; Visit Provider Radiology Diagnostic Radiology
DX: M51.369 Other intervertebral disc degeneration, lumbar region without mention of lumbar back pain or lower extremity pain (principal); I12.9 Hypertensive chronic kidney disease with stage 1 through stage 4 chronic kidney disease, or unspecified chronic kidney disease; N18.30 Chronic kidney disease, stage 3 unspecified; E78.5 Hyperlipidemia, unspecified
CPT/HCPCS: 36415; 72100; 80053; 80061; 81001; 82043; 82306; 82570; 83036; 83970; 84443; 85025

== ENCOUNTER → 2025-09-13 | Outpatient (CLI) | payer MEDICARE, BC, SELFPAY ==
[2025-09-13 16:28] LABS: Albumin, Serum 4.7 gm/dL (3.4-4.8); Anion Gap 9 (7-16); BUN/Creatinine Ratio 17 Ratio (12-20); Blood Urea Nitrogen 33 mg/dL (9-23); Calcium 11.1 mg/dL (8.3-10.6); Calcium (Corrected) 11.1 mg/dL (8.5-10.1); Carbon Dioxide 28.6 mMol/L (20.0-31.0); Chloride 107 mMol/L (98-107); Creatinine (Component) 1.9 mg/dL (0.6-1.3); Glucose 105 mg/dL (74-106); Osmolality,Calculated 295 (275-295); Phosphorous 4.2 mg/dL (2.4-5.1); Potassium 4.4 mMol/L (3.4-5.1); Sodium 145 mMol/L (136-145); eGFR 27 See Note
== END | disposition home or self-care (01) ==
LOC: COPL 14:54
PROVIDERS: PCP Family Medicine; Referring Provider Internal Medicine; Visit Provider Internal Medicine
DX: N18.30 Chronic kidney disease, stage 3 unspecified (principal)
CPT/HCPCS: 36415; 80069